=== PATIENT | female | born 1955 | race Caucasian/White ===

== ENCOUNTER 2024-06-27 11:25 | Outpatient (OUT) | payer MEDICARE, OTHER, SELFPAY ==
[2024-06-27 12:29] LABS: Free T3 2.73 pg/mL (2.18-3.98); Thyroid Stimulating Hormone 0.511 uIU/mL (0.358-3.740)
[2024-06-27 12:42] LABS: Free T4 0.83 ng/dL (0.76-1.46)
[2024-06-28 08:12] LABS: Triiodothyronine (T3) 182 ng/dL (71-180)
[2024-06-30 16:10] LABS: Reverse T3, Serum 16.5 ng/dL (9.2-24.1)
== END 2024-06-27 11:26 | disposition home or self-care (01) ==
LOC: LAB 11:37
PROVIDERS: PCP Family Medicine; Visit Provider Family Medicine
DX: R53.82 Chronic fatigue, unspecified (principal); E06.3 Autoimmune thyroiditis; E07.81 Sick-euthyroid syndrome
CPT/HCPCS: 36415; 84439; 84443; 84480; 84481; 84482